=== PATIENT | male | born 1995 | race Asian ===

== ENCOUNTER 2017-06-11 20:18 | Emergency (ER) | payer SELFPAY ==
[~2017-06-11] VITALS: Ht 172.7 cm; Wt 72.0 kg
[2017-06-11 22:11] VITALS: BP 132/76
--- NOTE | 2017-06-12 09:20 | REP ---
Clinical: Trauma. Technique: AP, lateral views left humerus . Findings: The osseous structures and joint spaces are intact and normal. There is no evidence for acute fracture or dislocation. Surrounding soft tissues are unremarkable. No subcutaneous emphysema or radiodense foreign body. Impression: Normal examination . No acute fracture or dislocation. Signed by Satish Alves MD 06/12/2017 08:16 A
--- NOTE | 2017-06-12 09:20 | REP ---
Clinical: Trauma. Technique: AP, lateral, bilateral oblique and sunrise views right knee . Findings: The osseous structures and joint spaces are intact and normal. There is no evidence for acute fracture or dislocation. No joint effusion is appreciated. Surrounding soft tissues are unremarkable. No subcutaneous emphysema or radiodense foreign body. Impression: Normal examination. No acute fracture or dislocation. Signed by Satish Alves MD 06/12/2017 08:16 A
== END 2017-06-11 22:16 | disposition home or self-care (01) ==
LOC: M ED 20:18
DX: S80.01XA Contusion of right knee, initial encounter (principal); S40.022A Contusion of left upper arm, initial encounter; V19.40XA Pedal cycle driver injured in collision with unspecified motor vehicles in traffic accident, initial encounter; Y92.410 Unspecified street and highway as the place of occurrence of the external cause; Y93.89 Activity, other specified; Y99.9 Unspecified external cause status